=== PATIENT | female | born 1990 | race Caucasian/White ===

== ENCOUNTER 2018-05-24 10:04 | Emergency (ER) | payer SELFPAY ==
[2018-05-24] MEDS ORDERED: ACETAMINOPHEN 325 MG TABLET PO ONE (11:02)
--- NOTE | 2018-05-24 11:04 | ER Document Report ---
ED Medical Screen (RME) - General Chief Complaint: Breathing Difficulty Stated Complaint: FEVER Time Seen by Provider: 05/24/18 11:02 Primary Care Provider: SHARITA RUIZ MD [Primary Care Provider] - Follow up as needed Notes: Patient says that she has been sick for the past 2 days with difficulty breathing, coughing, she congested. She is also running a fever. Her breathing difficulty worsened today. No history of asthma. 6-year-old daughter diagnosed 1 week ago with the flu. Other child is here with similar symptoms. TRAVEL OUTSIDE OF THE [place] IN LAST 30 DAYS: No - Related Data Allergies/Adverse Reactions: No Known Allergies Allergy (Verified 05/24/18 10:06) Past Medical History - Social History Chew tobacco use (# tins/day): No Frequency of alcohol use: None Drug Abuse: None Renal/ Medical History: Denies: Hx Peritoneal Dialysis - Immunizations Hx Diphtheria, Pertussis, Tetanus Vaccination: Yes Physical Exam - Vital signs Vitals: Temp Pulse Resp BP Pulse Ox 103.0 F H 104 H 18 146/99 H 96 05/24/18 10:44 05/24/18 10:44 05/24/18 10:44 05/24/18 10:44 05/24/18 10:44 Course - Vital Signs Vital signs: Temp Pulse Resp BP Pulse Ox 103.0 F H 104 H 18 146/99 H 96 05/24/18 10:44 05/24/18 10:44 05/24/18 10:44 05/24/18 10:44 05/24/18 10:44 Doctor's Discharge - Discharge Referrals: SHARITA RUIZ MD [Primary Care Provider] - Follow up as needed
--- NOTE | 2018-05-24 11:41 | RADIOLOGY REPORT (SQ) ---
EXAM DESCRIPTION: CHEST 2 VIEWS COMPLETED DATE/TIME: 05/24/2018 11:33 am REASON FOR STUDY: Cough and chest congestion, temp 103. COMPARISON: None. EXAM PARAMETERS: NUMBER OF VIEWS: two views TECHNIQUE: Digital Frontal and Lateral radiographic views of the chest acquired. RADIATION DOSE: NA LIMITATIONS: none FINDINGS: LUNGS AND PLEURA: No opacities, masses or pneumothorax. No pleural effusion. MEDIASTINUM AND HILAR STRUCTURES: No masses or contour abnormalities. HEART AND VASCULAR STRUCTURES: Heart normal size. No evidence for failure. BONES: No acute findings. HARDWARE: None in the chest. OTHER: No other significant finding. IMPRESSION: NO ACUTE RADIOGRAPHIC FINDING IN THE CHEST. TECHNICAL DOCUMENTATION: JOB ID: [id number] [employer]- All Rights Reserved Reading location - IP/workstation name: [email or web address]
[2018-05-24 12:25] LABS: A TYPE INFLUENZA AG NEGATIVE (NEGATIVE); B INFLUENZA AG NEGATIVE (NEGATIVE)
--- NOTE | 2018-05-24 12:54 | ER Document Report ---
ED Respiratory Problem - General Chief Complaint: Breathing Difficulty Stated Complaint: FEVER Time Seen by Provider: 05/24/18 11:02 Primary Care Provider: SHARITA RUIZ MD [Primary Care Provider] - Follow up as needed Information source: Patient Notes: 27-year-old female up-to-date on vaccinations presents today with the onset 2 days ago of runny nose, congestion, sore throat, and coughing. No headache, neck pain, vomiting, or diarrhea. Patient's daughter had similar pathology 1 week ago and was diagnosed with influenza. 2-year-old child is also in the room with similar symptomatology. TRAVEL OUTSIDE OF THE [place] IN LAST 30 DAYS: No - HPI Patient complains to provider of: Other - See above Onset: Other - See above Severity: Mild Context: Other - See above. denies: Smoker Sputum amount: Scant Sputum color: Clear Associated symptoms: Other - See above Similar symptoms previously: Yes Recently seen / treated by doctor: No - Related Data Allergies/Adverse Reactions: No Known Allergies Allergy (Verified 05/24/18 10:06) Past Medical History - Social History Smoking Status: Never Smoker Chew tobacco use (# tins/day): No Frequency of alcohol use: None Drug Abuse: None Family History: Reviewed & Not Pertinent Patient has suicidal ideation: No Patient has homicidal ideation: No Renal/ Medical History: Denies: Hx Peritoneal Dialysis - Immunizations Hx Diphtheria, Pertussis, Tetanus Vaccination: Yes Review of Systems - Review of Systems Constitutional: denies: Fever EENT: Nose congestion, Nose discharge. denies: Eye discharge Cardiovascular: denies: Chest pain Respiratory: Cough. denies: Short of breath Gastrointestinal: denies: Vomiting Genitourinary: denies: Dysuria Musculoskeletal: denies: Leg swelling Skin: Other - no hives. denies: Rash Neurological/Psychological: Other - no slurred speech -: Yes All other systems reviewed and negative Physical Exam - Vital signs Vitals: Temp Pulse Resp BP Pulse Ox 103.0 F H 104 H 18 146/99 H 96 05/24/18 10:44 05/24/18 10:44 05/24/18 10:44 05/24/18 10:44 05/24/18 10:44 Notes: Reviewed vital signs and nursing note as charted by RN. CONSTITUTIONAL: Alert and oriented and responds appropriately to questions. Well-appearing; well-nourished HEAD: Normocephalic; atraumatic EYES: PERRL; Conjunctivae clear, sclerae non-icteric ENT: Normal nose; bilateral nonpurulent nasal rhinorrhea; moist mucous membranes; pharynx erythematous with a midline uvula with no peritonsillar swelling NECK: Supple without meningismus; non-tender; no cervical lymphadenopathy, no masses CARD: Regular rate and rhythm; no murmurs; symmetric distal pulses RESP: Normal chest excursion without splinting or tachypnea; breath sounds clear and equal bilaterally; no wheezing or rhonchi present ABD/GI: Normal bowel sounds; non-distended; soft, non-tender; no palpable organomegaly or masses BACK: The back appears normal and is non-tender to palpation EXT: Normal ROM in all joints; non-tender to palpation; no edema SKIN: No acute lesions noted NEURO: CN 2-12 intact; 5/5 bilateral upper and lower extremity strength with sensation intact to light touch PSYCH: The patient's mood and manner are appropriate. Grooming and personal hygiene are appropriate. Course - Re-evaluation Re-evalutation: Given the above history and physical examination, rapid strep and influenza with an x-ray of the chest was ordered in triage. Tylenol was provided. Given the lack of headache or neck stiffness, no rash, 2 children with similar symptomatology, I do believe acute bacterial meningitis to be extremely unlikely. 05/24/18 12:52 Imaging, strep, and influenza are unremarkable. No change in exam. 2-year-old son in the room also is negative for influenza and strep. Patient will be discharged home after antipyretics with strict return precautions and follow-up with the primary care provider. - Vital Signs Vital signs: Temp Pulse Resp BP Pulse Ox 103.0 F H 104 H 18 146/99 H 96 05/24/18 10:44 05/24/18 10:44 05/24/18 10:44 05/24/18 10:44 05/24/18 10:44 Discharge - Discharge Clinical Impression: Nasal congestion, Cough Fever Qualifiers: Fever type: unspecified Qualified Code(s): R50.9 - Fever, unspecified Condition: Good Disposition: HOME, SELF-CARE Additional Instructions: Come back immediately for any worsening cough, difficulty breathing or swallowing, rash, neck stiffness or headache, altered mental status, persistent vomiting, or any other acute problems. Please follow-up with the primary care physician as we have discussed. Referrals: SHARITA RUIZ MD [Primary Care Provider] - Follow up as needed
[2018-05-24 13:32] VITALS: BP 123/80
== END 2018-05-24 13:33 | disposition home or self-care (01) ==
LOC: ER 10:04
DX: R09.81 Nasal congestion (principal); R05 Cough; R06.02 Shortness of breath; R09.89 Other specified symptoms and signs involving the circulatory and respiratory systems; J02.9 Acute pharyngitis, unspecified; R50.9 Fever, unspecified
CPT/HCPCS: 71046; 87070; 87804; 87880; 99283

== ENCOUNTER 2019-01-10 16:03 | Emergency (ER) | payer OTHER, MEDICAID ==
[2019-01-10] MEDS ORDERED: ACETAMINOPHEN 325 MG TABLET PO ONE (17:02)
[2019-01-10] MEDS ORDERED: IBUPROFEN 600 MG TABLET PO ONE (17:02)
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
[2019-01-10 18:47] VITALS: BP 126/84
== END 2019-01-10 18:35 | disposition home or self-care (01) ==
LOC: ER 16:03
DX: S40.021A Contusion of right upper arm, initial encounter (principal); M25.521 Pain in right elbow; M54.2 Cervicalgia; V87.7XXA Person injured in collision between other specified motor vehicles (traffic), initial encounter
CPT/HCPCS: 99283

== ENCOUNTER 2019-12-26 17:00 | Emergency (ER) | payer MEDICAID, OTHER ==
--- NOTE | 2019-12-26 17:13 | ER Document Report ---
ED Medical Screen (RME) - General Chief Complaint: Abdominal Pain Stated Complaint: ABDOMINAL PAIN/VAGINAL BLEEDING - Time Seen by Provider: 12/26/19 17:10 Mode of Arrival: Ambulatory Information source: Patient Notes: 29-year-old female presented to ED for vaginal bleeding and . She states she just ended a week ago she was and now she is cramping and bleeding. She states she started about an hour ago she is not blood enough to soak a pad as yet. She is 4 para 3. She does not smoke drink or use any illicit drugs. She states her last menstrual period started on November 24. Patient is alert oriented respirations regular nonlabored speaking in full sentences. I have greeted and performed a rapid initial assessment of this patient. A comprehensive ED assessment and evaluation of the patient, analysis of test results and completion of medical decision making process will be conducted by an additional ED providers. TRAVEL OUTSIDE OF THE [place] IN LAST 30 DAYS: No - Related Data Allergies/Adverse Reactions: No Known Allergies Allergy (Verified 01/10/19 16:06) Past Medical History Renal/ Medical History: Denies: Hx Peritoneal Dialysis - Immunizations Hx Diphtheria, Pertussis, Tetanus Vaccination: Yes
[2019-12-26 17:44] LABS: ABSOLUTE EOSINOPHILS # (AUTO) 0.1 10^3/uL (0.0-0.6); ABSOLUTE LYMPHOCYTES (AUTO) 2.7 10^3/uL (0.5-4.7); ABSOLUTE MONOCYTES (AUTO) 0.6 10^3/uL (0.1-1.4); ABSOLUTE NEUT (AUTO) 2.9 10^3/uL (1.7-8.2); BASOPHILS % (AUTO) 0.3 % (0-2); EOSINOPHILS % (AUTO) 0.8 % (0-6); HEMATOCRIT 38.4 % (36.0-47.0); HEMOGLOBIN 12.8 g/dL (12.0-15.5); LYMPHOCYTES % (AUTO) 43.2 % (13-45); MEAN CORPUSCULAR HEMOGLOBIN 29.5 pg (27.0-33.4); MEAN CORPUSCULAR HGB CONC 33.2 g/dL (32.0-36.0); MEAN CORPUSCULAR VOLUME 89 fl (80-97); MONOCYTES % (AUTO) 10.2 % (3-13); PLATELET COUNT 319 10^3/uL (150-450); RED BLOOD COUNT 4.33 10^6/uL (3.72-5.28); RED CELL DISTRIBUTION WIDTH 12.7 % (11.5-14.0); SEGMENTED NEUTROPHILS % (AUTO) 45.5 % (42-78); TOTAL CELLS COUNTED % (AUTO) 100 %; WHITE BLOOD COUNT 6.4 10^3/uL (4.0-10.5)
[2019-12-26 18:02] LABS: ALBUMIN 4.9 g/dL (3.5-5.0); ALKALINE PHOSPHATASE 87 U/L (38-126); ANION GAP 14 (5-19); ASPARTATE AMINO TRANSFERASE 30 U/L (14-36); BILIRUBIN,DIRECT 0.3 mg/dL (0.0-0.4); BILIRUBIN,TOTAL 0.5 mg/dL (0.2-1.3); BLOOD UREA NITROGEN 11 mg/dL (7-20); CALCIUM 9.8 mg/dL (8.4-10.2); CARBON DIOXIDE 24 mmol/L (22-30); CHLORIDE 104 mmol/L (98-107); GLUCOSE 100 mg/dL (75-110); POTASSIUM 3.9 mmol/L (3.6-5.0); TOTAL PROTEIN 8.6 g/dL (6.3-8.2)
[2019-12-26 18:52] LABS: APPEARANCE,URINE CLOUDY; BILIRUBIN,URINE NEGATIVE (NEGATIVE); COLOR,URINE YELLOW; GLUCOSE, URINE NEGATIVE (NEGATIVE); KETONES,URINE NEGATIVE (NEGATIVE); LEUKOCYTE ESTERASE,URINE LARGE (NEGATIVE); NITRITE,URINE NEGATIVE (NEGATIVE); PROTEIN,URINE 30 mg/dL (NEGATIVE); URINE SPECIFIC GRAVITY 1.027; UROBILINOGEN,URINE NEGATIVE mg/dL (<2.0)
--- NOTE | 2019-12-26 18:58 | RADIOLOGY REPORT (SQ) ---
US PELVIS HISTORY: Early . Pelvic pain. COMPARISON: None. TECHNIQUE: Grayscale, color Doppler, and spectral Doppler ultrasound images of the pelvis were obtained. FINDINGS: There is an intrauterine gestational sac with a mean sac diameter of 0.91 cm which corresponds to 5 weeks 5 days. No yolk sac or pole is seen at this time. The cervix is 2.5 cm and is closed. No subchorionic hematoma. Both ovaries are normal in size and contain normal follicles, with the right ovary measuring 3.0 x 2.7 cm and the left ovary measuring 3.4 x 2.1 cm. Normal color Doppler blood flow is seen in both ovaries. No free fluid is evident. IMPRESSION: Intrauterine gestation of 5 weeks 5 days. No yolk sac or pole is seen at this time. Findings may represent early . Recommend short-term follow-up ultrasound imaging.
--- NOTE | 2019-12-26 22:03 | ER Document Report ---
ED GI/ - General Chief Complaint: Abdominal Pain Stated Complaint: ABDOMINAL PAIN/VAGINAL BLEEDING - Time Seen by Provider: 12/26/19 17:10 Mode of Arrival: Ambulatory Notes: This 29-year-old presents to the emergency department with a history of vaginal bleeding today while at work. She noted cramping and vaginal bleeding which she noted as a spotting and not gushing of blood. Last normal menstrual period was November 24., She presents to the emergency department for evaluation of a early spontaneous AB. TRAVEL OUTSIDE OF THE [place] IN LAST 30 DAYS: No - Related Data Allergies/Adverse Reactions: No Known Allergies Allergy (Verified 01/10/19 16:06) Past Medical History - General Information source: Patient - Social History Smoking Status: Unknown if Ever Smoked Family History: Reviewed & Not Pertinent Patient has homicidal ideation: No Renal/ Medical History: Denies: Hx Peritoneal Dialysis - Immunizations Hx Diphtheria, Pertussis, Tetanus Vaccination: Yes Review of Systems - Review of Systems Notes: Constitutional: Negative for fever. HENT: Negative for sore throat. Eyes: Negative for visual changes. Cardiovascular: Negative for chest pain. Respiratory: Negative for shortness of breath. Gastrointestinal: Negative for abdominal pain, vomiting or diarrhea. Genitourinary: See HPI Musculoskeletal: Negative for back pain. Skin: Negative for rash. Neurological: Negative for headaches, weakness or numbness. 10 point ROS negative except as marked above and in HPI. Physical Exam - Notes Notes: PHYSICAL EXAMINATION: Physical Exam: General: Well-nourished well-developed 29-year-old female in no acute distress HEENT: NC/AT, pupils equal round and reactive to light, MM moist,nares clear, oropharynx clear, airway patent Neck: supple, no adenopathy, no masses. Good range of motion Lungs: clear, no wheezing, no rales no rhonchi CVS: Regular rate and rhythm no murmur gallop or rub Abdomen: Soft, active, nontender, no masses, no hepatosplenomegaly Ext: No edema, clubbing or cyanosis. Neuro: Alert and responsive, moving all 4 extremities on command, cranial nerves intact, no focal findings Skin: Intact no open lesions, no rash Course - Re-evaluation Re-evalutation: 12/26/19 22:00 Patient is hemodynamically stable, sitting on the bed texting on her telephone at the time of this examiner's exam. Ultrasound reveals a 5-week 5-day intrauterine sac with no pole noted. Quantitative hCG was 177. Is not actively bleeding at this time I have advised her to follow-up with the health department on her appointment January 01, 2020. A repeat quantitative hCG may be performed at that time. Patient acknowledges understanding of this plan and has requested a note to stay out of work for the next few days. - Laboratory Result Diagrams: 12/26/19 17:26 12/26/19 17:26 Laboratory results interpreted by me: 12/26/19 12/26/19 17:13 17:26 Total Protein 8.6 H Beta HCG, Quant 177.82 H Urine Protein 30 H Urine Blood LARGE H Ur Leukocyte Esterase LARGE H Discharge - Discharge Clinical Impression: First trimester , Vaginal bleeding Condition: Good Disposition: HOME, SELF-CARE Instructions: Threatened Abortions ( Patients) Additional Instructions: You are seen in the emergency department tonight with vaginal bleeding and early . Your ultrasound shows that there is a yolk sac in the uterus, however, no structures can be identified as it is a very early . Please follow-up with your appointment on December 31 with the health department. If you are having further difficulty or worsening symptoms you may be rechecked in the emergency department HOME CARE INSTRUCTIONS & INFORMATION: Thank you for choosing us for your medical needs. We hope you're satisfied with the care you received. After you leave, you must properly care for your problem and, at the same time, observe its progress. Any condition can change. Some illnesses can change rapidly over hours or days. If your condition worsens, return to the Emergency Department or see your physician promptly. ABOUT YOUR X-RAYS AND EKG'S: If you had an EKG or X-rays taken, they have been read by the Emergency Physician. The X-rays and EKG's will also be read by a Radiologist or Warehouse Director within 24 hours. If discrepancies are noted, you will be notified by telephone. Please be certain the ED has a correct telephone number & address where you can be reached. Also, realize that some fractures or abnormalities do not show up on initial X-rays. If your symptoms continue, see your physician. ABOUT YOUR LABORATORY TEST: If you had laboratory tests, the results have been reviewed by the Emergency Physician. Some test results (for example cultures) may not be available for several days. You will be contacted if any test result shows you need additional treatment. Please be certain the ED has a correct telephone number and address where you can be reached. ABOUT YOUR MEDICATIONS: You will receive instructions on how to take your medicine on the prescription label you receive. Additional information may be provided by the Pharmacy. If you have questions afterwards, call the ED for clarification or further instructions. Some prescribed medications may cause drowsiness. Do not perform tasks such as driving a car or operating machinery without consulting your Pharmacist. If you feel you need a refill of pain medication, your condition will need re-evaluation. Please do not call for a refill of any medication. ABOUT YOUR SIGNATURE: Signature of this document acknowledges to followin. Understanding that you received emergency treatment and that you may be released before al medical problems are known or treated. Please be certain the ED has a correct phone number & address where you can be reached. 2. Acknowledgement that you will arrange for follow-up care as recommended. 3. Authorization for the Emergency Physician to provide information to your follow-up Physician in order to maximize your care. AT ANY TIME, IF YOUR SYMPTOMS CHANGE SIGNIFICANTLY OR WORSEN OR YOU DEVELOP NEW SYMPTOMS, RETURN TO THE EMERGENCY DEPARTMENT IMMEDIATELY FOR RE-EVALUATION. OUR GOAL IS TO PROVIDE EXCELLENT MEDICAL CARE! WE HOPE THAT WE HAVE MET YOUR EXPECTATIONS DURING YOUR EMERGENCY DEPARTMENT VISIT AND THAT YOU FEEL YOU HAVE RECEIVED EXCELLENT CARE! Forms: Return to Work
[2019-12-26 22:13] VITALS: BP 126/94
== END 2019-12-26 22:14 | disposition home or self-care (01) ==
LOC: ER 17:00
DX: O20.9 Hemorrhage in early pregnancy, unspecified (principal); O26.891 Other specified pregnancy related conditions, first trimester; R25.2 Cramp and spasm; Z3A.01 Less than 8 weeks gestation of pregnancy
CPT/HCPCS: 36415; 76817; 80053; 81001; 84702; 85025; 87086; 99284

== ENCOUNTER 2020-03-21 20:41 | Emergency (ER) | payer MEDICAID ==
--- NOTE | 2020-03-21 21:55 | ER Document Report ---
ED Medical Screen (RME) - General Chief Complaint: Vaginal Bleeding Stated Complaint: VOMITING BLOOD/VAGINAL PAIN Time Seen by Provider: 03/21/20 21:50 Mode of Arrival: Ambulatory Information source: Patient Notes: 29-year-old female presented to ED for complaint of abdominal pain and vomiting blood. She is 17 weeks . She states she was treated for GC and chlamydia and bacterial vaginosis and she thinks she has a yeast infection now. She states that there is a lot of white discharge but she also feels like she is tearing and spreading down there. Patient is alert oriented respirations regular nonlabored speaking in full sentences. We will get blood urine and transabdominal ultrasound and she will be seen by another person. I will order the GC chlamydia and wet mount swabs the summer we will need to examine her vaginal area for what she is describing. I have greeted and performed a rapid initial assessment of this patient. A comprehensive ED assessment and evaluation of the patient, analysis of test results and completion of medical decision making process will be conducted by an additional ED providers. TRAVEL OUTSIDE OF THE [place] IN LAST 30 DAYS: No - Related Data Allergies/Adverse Reactions: No Known Allergies Allergy (Verified 01/10/19 16:06) Past Medical History Renal/ Medical History: Denies: Hx Peritoneal Dialysis - Immunizations Hx Diphtheria, Pertussis, Tetanus Vaccination: Yes Physical Exam - Vital signs Vitals: Temp Pulse Resp BP Pulse Ox 98.2 F 94 16 122/83 98 03/21/20 21:16 03/21/20 21:16 03/21/20 21:16 03/21/20 21:16 03/21/20 21:16 Course - Vital Signs Vital signs: Temp Pulse Resp BP Pulse Ox 98.2 F 94 16 122/83 98 03/21/20 21:16 03/21/20 21:16 03/21/20 21:16 03/21/20 21:16 03/21/20 21:16
[2020-03-21 22:23] LABS: ABSOLUTE EOSINOPHILS # (AUTO) 0.1 10^3/uL (0.0-0.6); ABSOLUTE LYMPHOCYTES (AUTO) 3.1 10^3/uL (0.5-4.7); ABSOLUTE MONOCYTES (AUTO) 0.7 10^3/uL (0.1-1.4); ABSOLUTE NEUT (AUTO) 6.7 10^3/uL (1.7-8.2); BASOPHILS % (AUTO) 0.4 % (0-2); EOSINOPHILS % (AUTO) 0.5 % (0-6); HEMATOCRIT 36.2 % (36.0-47.0); HEMOGLOBIN 12.6 g/dL (12.0-15.5); MEAN CORPUSCULAR HEMOGLOBIN 30.4 pg (27.0-33.4); MEAN CORPUSCULAR HGB CONC 34.7 g/dL (32.0-36.0); MEAN CORPUSCULAR VOLUME 88 fl (80-97); MONOCYTES % (AUTO) 6.9 % (3-13); PLATELET COUNT 365 10^3/uL (150-450); RED BLOOD COUNT 4.13 10^6/uL (3.72-5.28); SEGMENTED NEUTROPHILS % (AUTO) 63.2 % (42-78); TOTAL CELLS COUNTED % (AUTO) 100 %; WHITE BLOOD COUNT 10.6 10^3/uL (4.0-10.5)
[2020-03-21 22:38] LABS: APPEARANCE,URINE SLIGHTLY-CLOUDY; BILIRUBIN,URINE NEGATIVE (NEGATIVE); COLOR,URINE AMBER; GLUCOSE, URINE NEGATIVE (NEGATIVE); KETONES,URINE 20 mg/dL (NEGATIVE); LEUKOCYTE ESTERASE,URINE TRACE (NEGATIVE); NITRITE,URINE NEGATIVE (NEGATIVE); PROTEIN,URINE 30 mg/dL (NEGATIVE); UROBILINOGEN,URINE NEGATIVE mg/dL (<2.0)
[2020-03-21 22:54] LABS: ALBUMIN 4.3 g/dL (3.5-5.0); ALKALINE PHOSPHATASE 74 U/L (38-126); ANION GAP 9 (5-19); ASPARTATE AMINO TRANSFERASE 44 U/L (14-36); BILIRUBIN,DIRECT 0.1 mg/dL (0.0-0.4); BILIRUBIN,TOTAL 0.4 mg/dL (0.2-1.3); BLOOD UREA NITROGEN 6 mg/dL (7-20); CALCIUM 9.9 mg/dL (8.4-10.2); CARBON DIOXIDE 23 mmol/L (22-30); CHLORIDE 104 mmol/L (98-107); GLUCOSE 107 mg/dL (75-110); POTASSIUM 3.8 mmol/L (3.6-5.0); TOTAL PROTEIN 8.1 g/dL (6.3-8.2)
--- NOTE | 2020-03-21 23:09 | RADIOLOGY REPORT (SQ) ---
Obstetric ultrasound: 03/21/2020 10:04 PM PARK RECREATION MANAGER HISTORY: 29-year-old female with abdominal pain, vaginal bleeding. TECHNIQUE: Multiple grayscale and color Doppler images of the pelvis were obtained transabdominally. COMPARISON: None available for this . FINDINGS: A single intrauterine gestation is seen, which is variable in position. The placenta is anterior in location, and free of internal os of the cervix. The estimated heart rate is approximately bpm. The cervix measures at least 4.3 cm in length. The SOURAV measures 14.4 cm, with the deepest vertical pocket of approximately 4.7 cm. The following measurements were obtained: BPD: 4.7 cm, consistent with 20 weeks and 1 day(s). HC: 13.6 cm, consistent with 17 weeks and 1 day(s). AC: 12.2 cm, consistent with 17 weeks and 6 day(s). FL: 2.6 cm, consistent with 17 weeks and 6 day(s). The estimated weight is approximately 213 g +/- 15%. The fetus overall measures at the 18%. The fetus measures at 18 weeks and 2 day(s) by AUA, consistent with an estimated due date of 08/20/20. This is different than the established due date of 08/31/2020. IMPRESSION: A single, live intrauterine gestation is seen which is currently variable in position. The fetus measures at 18 weeks and 2 day(s) by AUA, consistent with an estimated due date of 08/20/2020. This is different than the established due date of 08/31/2020. The fetus measures at the 18th percentile. This could be due to inaccurate dates. 2.Detailed anatomic assessment was not performed. Interval follow-up with an obstetric care provider is recommended.
--- NOTE | 2020-03-22 00:02 | ER Document Report ---
ED GI/ - General Mode of Arrival: Ambulatory TRAVEL OUTSIDE OF THE [place] IN LAST 30 DAYS: No <JOSE FRANCISCO GUO - Last Filed: 03/22/20 00:58> <AINSLEY VARELA - Last Filed: 03/22/20 16:38> - General Chief Complaint: Vaginal Discharge Stated Complaint: VOMITING BLOOD/VAGINAL PAIN Time Seen by Provider: 03/21/20 21:50 Notes: This 29-year-old woman 4 para 3 presents to the emergency department with a complaint of vomiting episodes with some blood noted in the vomitus today. She has been given a prescription for something for -induced nausea, however she did not get a prescription filled. She also complains of some pain in the lower pelvis region no bleeding and no vaginal discharge. (JOSE FRANCISCO GUO) - Related Data Allergies/Adverse Reactions: No Known Allergies Allergy (Verified 01/10/19 16:06) Past Medical History - General Information source: Patient - Social History Smoking Status: Unknown if Ever Smoked Family History: Reviewed & Not Pertinent Patient has homicidal ideation: No Renal/ Medical History: Denies: Hx Peritoneal Dialysis - Immunizations Hx Diphtheria, Pertussis, Tetanus Vaccination: Yes <JOSE FRANCISCO GUO - Last Filed: 03/22/20 00:58> Review of Systems <JOSE FRANCISCO GUO - Last Filed: 03/22/20 00:58> - Review of Systems Notes: Constitutional: Negative for fever. HENT: Negative for sore throat. Eyes: Negative for visual changes. Cardiovascular: Negative for chest pain. Respiratory: Negative for shortness of breath. Gastrointestinal: See HPI Genitourinary: See HPI Musculoskeletal: Negative for back pain. Skin: Negative for rash. Neurological: Negative for headaches, weakness or numbness. 10 point ROS negative except as marked above and in HPI. (JOSE FRANCISCO GUO) Physical Exam <JOSE FRANCISCO GUO - Last Filed: 03/22/20 00:58> - Vital signs Vitals: Temp Pulse Resp BP Pulse Ox 98.2 F 94 16 122/83 98 03/21/20 21:16 03/21/20 21:16 03/21/20 21:16 03/21/20 21:16 03/21/20 21:16 - Notes Notes: PHYSICAL EXAMINATION: Physical Exam: General: Well-nourished well-developed 29-year-old female in no acute distress HEENT: NC/AT, pupils equal round and reactive to light, MM moist,nares clear, oropharynx clear, airway patent Neck: supple, no adenopathy, no masses. Good range of motion Lungs: clear, no wheezing, no rales no rhonchi CVS: Regular rate and rhythm no murmur gallop or rub Abdomen: Soft, active, gravid, + good bowel sounds, no masses, no hepatosplenomegaly Ext: No edema, clubbing or cyanosis. Neuro: Alert and responsive, moving all 4 extremities on command, cranial nerves intact, no focal findings Skin: Intact no open lesions, no rash (JOSE FRANCISCO GUO) Course - Laboratory Result Diagrams: 03/21/20 22:10 03/21/20 22:10 - Diagnostic Test Radiology reviewed: Image reviewed, Reports reviewed <JOSE FRANCISCO GUO - Last Filed: 03/22/20 00:58> - Laboratory Result Diagrams: 03/21/20 22:10 03/21/20 22:10 <AINSLEY VARELA - Last Filed: 03/22/20 16:38> - Re-evaluation Re-evalutation: 03/22/20 00:00 Patient presents with a history of vomiting episodes and approximately 17-week intrauterine . She has not been using any medications for nausea, has been able to keep some fluids and food down. She also complains of pain in the lower pelvic region and denies dysuria or urgency. This is her fourth she had preeclampsia with her last baby and low volume with the second baby. I have a asked her about her follow-up, patient states that she goes to the health department and is not a high risk group. Blood pressure tonight is normal 120/83. 03/22/20 00:02 03/22/20 00:02 (JOSE FRANCISCO GUO) 03/22/20 16:38 Patient positive for chlamydia, prescription for azithromycin written, KRYSTAL Ng advised to contact patient and have patient have partner seek treatment as well. (AINSLEY VARELA) - Vital Signs Vital signs: Temp Pulse Resp BP Pulse Ox 98.7 F 73 20 117/71 98 03/22/20 01:01 03/22/20 01:01 03/22/20 01:01 03/22/20 01:01 03/22/20 01:01 - Laboratory Laboratory results interpreted by me: 03/21/20 03/21/20 03/21/20 22:10 22:10 22:10 WBC 10.6 H Sodium 136.1 L BUN 6 L Creatinine 0.49 L AST 44 H ALT 43 H Beta HCG, Quant 21288.00 H Urine Protein 30 H Urine Ketones 20 H Ur Leukocyte Esterase TRACE H Chlamydia DNA (PCR) 03/21/20 23:00 WBC Sodium BUN Creatinine AST ALT Beta HCG, Quant Urine Protein Urine Ketones Ur Leukocyte Esterase Chlamydia DNA (PCR) DETECTED H 03/22/20 00:00 I have reviewed laboratory data and used this information for the treatment decisions regarding the patient. (JOSE FRANCISCO GUO) - Diagnostic Test Radiology results interpreted by me: 03/22/20 00:00 Obstetrics Ultrasound 03/21/20 21:56 IMPRESSION: A single, live intrauterine gestation is seen which is currently variable in position. The fetus measures at 18 weeks and 2 day(s) by AUA, consistent with an estimated due date of 08/20/2020. This is different than the established due date of 08/31/2020. The fetus measures at the 18th percentile. This could be due to inaccurate dates. 2.Detailed anatomic assessment was not performed. Interval follow-up with an obstetric care provider is recommended. (JOSE FRANCISCO GUO) Discharge <JOSE FRANCISCO GUO - Last Filed: 03/22/20 00:58> <AINSLEY VARELA - Last Filed: 03/22/20 16:38> - Discharge Clinical Impression: Second trimester , related nausea and vomiting, antepartum, Pelvic pain during Condition: Good Disposition: HOME, SELF-CARE Instructions: Vomiting ([facility]) Additional Instructions: You were seen in the emergency department tonight with some bleeding related to vomiting, pelvis pain with an 18-week and history of the preeclampsia. Your blood pressure tonight was normal and the labs that were received are on remarkable. The ultrasound reveals an 18-week 2-day intrauterine with good heartbeat. Use Tylenol for pain. Please get the prescription filled for medication for nausea control. Please follow-up with the health department as needed. HOME CARE INSTRUCTIONS & INFORMATION: Thank you for choosing us for your [facility] needs. We hope you're satisfied with the care you received. After you leave, you must properly care for your problem and, at the same time, observe its progress. Any condition can change. Some illnesses can change rapidly over hours or days. If your condition worsens, return to the Emergency Department or see your physician promptly. ABOUT YOUR X-RAYS AND EKG'S: If you had an EKG or X-rays taken, they have been read by the Emergency Physician. The X-rays and EKG's will also be read by a Radiologist or Manager Center within 24 hours. If discrepancies are noted, you will be notified by telephone. Please be certain the ED has a correct telephone number & address where you can be reached. Also, realize that some fractures or abnormalities do not show up on initial X-rays. If your symptoms continue, see your physician. ABOUT YOUR LABORATORY TEST: If you had laboratory tests, the results have been reviewed by the Emergency Physician. Some test results (for example cultures) may not be available for several days. You will be contacted if any test result shows you need additional treatment. Please be certain the ED has a correct telephone number and address where you can be reached. ABOUT YOUR MEDICATIONS: You will receive instructions on how to take your medicine on the prescription label you receive. Additional information may be provided by the Pharmacy. If you have questions afterwards, call the ED for clarification or further instructions. Some prescribed medications may cause drowsiness. Do not perform tasks such as driving a car or operating machinery without consulting your Pharmacist. If you feel you need a refill of pain medication, your condition will need re-evaluation. Please do not call for a refill of any medication. ABOUT YOUR SIGNATURE: Signature of this document acknowledges to followin. Understanding that you received emergency treatment and that you may be released before al medical problems are known or treated. Please be certain the ED has a correct phone number & address where you can be reached. 2. Acknowledgement that you will arrange for follow-up care as recommended. 3. Authorization for the Emergency Physician to provide information to your follow-up Physician in order to maximize your care. AT ANY TIME, IF YOUR SYMPTOMS CHANGE SIGNIFICANTLY OR WORSEN OR YOU DEVELOP NEW SYMPTOMS, RETURN TO THE EMERGENCY DEPARTMENT IMMEDIATELY FOR RE-EVALUATION. OUR GOAL IS TO PROVIDE EXCELLENT MEDICAL CARE! WE HOPE THAT WE HAVE MET YOUR EXPECTATIONS DURING YOUR EMERGENCY DEPARTMENT VISIT AND THAT YOU FEEL YOU HAVE RECEIVED EXCELLENT CARE!
[2020-03-22] MEDS ORDERED: ACETAMINOPHEN 325 MG TABLET PO ONE (00:03)
[2020-03-22 00:50] LABS: CHLAM PCR DETECTED (NOT DETECT)
[2020-03-22 01:02] VITALS: BP 117/71
== END 2020-03-22 01:03 | disposition home or self-care (01) ==
LOC: ER 20:41
DX: O98.812 Other maternal infectious and parasitic diseases complicating pregnancy, second trimester (principal); A74.9 Chlamydial infection, unspecified; O26.892 Other specified pregnancy related conditions, second trimester; R10.2 Pelvic and perineal pain; O99.612 Diseases of the digestive system complicating pregnancy, second trimester; K92.0 Hematemesis; O21.9 Vomiting of pregnancy, unspecified; Z3A.00 Weeks of gestation of pregnancy not specified
CPT/HCPCS: 99284; 36415; 87086; 84702; 85025; 80053; 81001; 87491; 87591; 76805; J3490; 87088; 87186

== ENCOUNTER 2020-03-22 19:46 | Emergency (ER) | payer MEDICAID ==
[2020-03-22] MEDS ORDERED: METRONIDAZOLE 500 MG TABLET PO ONE (20:10)
[2020-03-22] MEDS ORDERED: LIDOCAINE 1% INJ-PF (10 MG/ML) 30 ML SDV INJ ONE (20:10)
[2020-03-22] MEDS ORDERED: CEFTRIAXONE INJ 250 MG VIAL IM ONE (20:13)
--- NOTE | 2020-03-22 20:13 | ER Document Report ---
ED GI/ - General Chief Complaint: Vaginal Pain Stated Complaint: STD EXPOSURE Time Seen by Provider: 03/22/20 20:07 Mode of Arrival: Ambulatory Information source: Patient Notes: She was seen yesterday for pelvic pain vaginal pain and burning. She also is and was was tested for urinary tract infection and ultrasound for the baby. She states that when the doctor came and saw her that he said did that the baby was okay but he did not treat her for the STD or test her for trichomonas bacterial vaginosis or yeast. He states she states he did not look at her vaginal area. She states she did get a call today that she was positive for chlamydia and she needed to be treated. I have ordered the Flagyl and Rocephin at this time I have also ordered a self swab for a bacterial vaginosis. She states the vaginal pain is not as bad and the chlamydia makes sense because last time she had chlamydia did feel this way. Constitutional: Negative for fever. HENT: Negative for sore throat. Eyes: Negative for visual changes. Cardiovascular: Negative for chest pain. Respiratory: Negative for shortness of breath. Gastrointestinal: 17 weeks vaginal pain, positive for chlamydia yesterday needs treatment Genitourinary: Vaginal pain vaginal discharge positive for chlamydia did not get the wet mount done Musculoskeletal: Negative for back pain. Skin: Negative for rash. Neurological: Negative for headaches, weakness or numbness. 10 point ROS negative except as marked above and in HPI. VITAL SIGNS: Within normal limits. GENERAL: No acute distress, non-toxic appearance. HEAD: Normal with no signs of head trauma. EYES: PERRLA, EOMI, conjunctiva normal, no discharge. EARS: Hearing grossly intact. NOSE: Normal. THROAT: Oropharynx is normal. NECK: Normal range of motion, no tenderness, supple, no lymphadenopathy, No adenopathy, no JVD. CHEST: Clear breath sounds bilaterally. No wheezes, rales, or rhonchi. CARDIAC: Regular rate and rhythm. S1 and S2, without murmurs, gallops, or rubs. VASCULAR: No Edema. Peripheral pulses normal and equal in all extremities. ABDOMEN: Normal and soft with no tenderness, no masses or pulsatile masses. GASTROINTESTINAL: 19 weeks GENITOURINARY: Vaginal pain and discharge she is positive for chlamydia LYMPATHTIC: No lymphadenopathy noted. MUSCULOSKELETAL: Good range of motion of all major joints. Extremities without clubbing, cyanosis or edema. NEUROLOGICAL: Alert and oriented x 3. No focal sensory or strength deficits. Speech normal. Follows commands appropriately. PSYCHIATRIC: Normal Affect, judgement and mood. SKIN: Normal appearance with no rashes or lesions. TRAVEL OUTSIDE OF THE [place] IN LAST 30 DAYS: No - HPI Patient complains to provider of: Vaginal discharge, Vaginal pain Onset: Other - To 3 days Timing/Duration: Intermittent Quality of pain: Burning, Sharp Severity at maximum: Moderate Severity in ED: Moderate Pain Level: 4 Location: Vaginal Vaginal bleeding (Compared to normal period): None LMP: 18 weeks ultrasound done yesterday Sexual history: STD exposure Associated symptoms: Other - Vaginal pain 17 weeks Exacerbated by: Walking Relieved by: Denies Similar symptoms previously: Yes Recently seen / treated by doctor: Yes - Related Data Allergies/Adverse Reactions: No Known Allergies Allergy (Verified 03/22/20 20:02) Past Medical History - General Information source: Patient - Social History Smoking Status: Never Smoker Frequency of alcohol use: Rare Drug Abuse: None Lives with: Family Family History: Reviewed & Not Pertinent - Past Medical History Cardiac Medical History: Reports: None Pulmonary Medical History: Reports: None EENT Medical History: Reports: None Neurological Medical History: Reports: None Endocrine Medical History: Reports: None Renal/ Medical History: Reports: Other - Chlamydia Malignancy Medical History: Reports: None GI Medical History: Reports: None Musculoskeletal Medical History: Reports None Skin Medical History: Reports None Psychiatric Medical History: Reports: None Traumatic Medical History: Reports: None Infectious Medical History: Reports: None - Immunizations Hx Diphtheria, Pertussis, Tetanus Vaccination: Yes Physical Exam - Vital signs Vitals: Temp Pulse Resp BP Pulse Ox 98.0 F 85 16 143/101 H 97 03/22/20 19:49 03/22/20 19:49 03/22/20 19:49 03/22/20 19:49 03/22/20 19:49 Course - Re-evaluation Re-evalutation: 03/22/20 21:19 Discussed results of wet mount and urine with Dr. Keller. She agreed with the treatment plan I had done. She states distant discussed with the patient that she can use Monistat but the 7-day is much more tolerated for a than the 3-day treatment. She states if you have a 3-day treatment you can use it but if it starts to burn to use a 7-day. She also agreed with the treatment with azithromycin and Flagyl at this time. She states she would like to see the patient within the next week the patient states she goes to the health department tomorrow and she will discuss this with them tomorrow. - Vital Signs Vital signs: Temp Pulse Resp BP Pulse Ox 98.0 F 85 16 120/80 97 03/22/20 19:49 03/22/20 19:49 03/22/20 19:49 03/22/20 20:18 03/22/20 19:49 Discharge - Discharge Clinical Impression: Chlamydia, Bacterial vaginosis, Yeast vaginitis Condition: Stable Disposition: HOME, SELF-CARE Additional Instructions: VAGINITIS: Your exam shows that you have vaginitis, a vaginal infection. The infection can be caused by a many different organisms, including trichomonas or Gardnerella. The usual symptoms are vaginal irritation and discharge. The treatment is usually antibiotics such as Flagyl. Laboratory tests can determine which germ is responsible. Use the medication as prescribed. Because this infection can be transmitted sexually, your sexual partner may need to be checked and treated also. If your physician has not discussed this with you, please check before resuming sexual relations. If a culture shows gonorrhea or chlamydia, the infection must be reported to the health department. Call the doctor if you develop pelvic pain, fever, or problems with urination, or if you don't improve as expected. VAGINOSIS, BACTERIAL: Your exam shows you have bacterial vaginosis. This condition is due to an overgrowth of bacteria in the vagina. Symptoms may include vaginal itching or pain, a smelly discharge, and sometimes burning with urination. Normally this is not transmitted by sexual contact. Vaginosis can be treated with oral or topical antibiotics. Metronidazole (Flagyl) pills are usually effective. Topical vaginal creams include Cleocin and Metro-Gel. You should avoid sexual contact until your symptoms are all better. Call the doctor if you develop pelvic pain, fever, or problems with urination, or if you don't improve as expected. VAGINAL YEAST INFECTION: You have evidence of a yeast infection -- called "irma." A vaginal yeast infection often causes itching and discharge. While not dangerous, it can be very unpleasant. A yeast infection often follows the use of powerful antibiotics. It is more likely to occur in diabetics. The treatment now is usually a single pill of Diflucan, but also an antifungal cream or suppository may be used for a few days. You do not need to avoid sexual intercourse. Recurrences are common. You can make a recurrence less likely by wearing cotton underwear and avoiding tight clothing. For mild recurrences, you can try [id number] creams or suppositories that are made specifically for yeast. If the symptoms do not resolve, you should follow up for re-examination. Sometimes treatment of the sexual partner is necessary if infections are recurrent. CEPHALOSPORINS: An antibiotic of the cephalosporin class has been prescribed. This type of antibiotic covers a wide variety of infections, including those of the skin, lungs, middle ear, and urinary tract. This antibiotic is somewhat similar to the penicillin family. In rare cases, a person who is allergic to penicillin will also be allergic to this medication. If you have had a severe allergic reaction to penicillin, and have not taken this antibiotic since that time, notify your doctor. Antibiotics which cover many germs ("broad spectrum" antibiotics) are more likely to cause diarrhea or "yeast" infections. Women prone to vaginal yeast problems may suffer an attack after taking this antibiotic. In infants, oral thrush (white spots "stuck" on the cheek) or yeast diaper rash may result. See your doctor if these problems occur. Call the doctor at once if you develop hives, itching, shortness of breath, or lightheadedness. AZITHROMYCIN: Azithromycin (Zithromax) is a broad spectrum antibiotic in the same class as erythromycin. It can treat a variety of bacterial infections, but is most frequently used for respiratory infections. Azithromycin is extremely long-lasting. It accumulates in body tissues and continues to kill bacteria for many days. In order to improve absorption, Azithromycin should be taken at least one hour before or two hours after a meal. It does not have the same strong tendency to upset the stomach as erythromycin and is usually very well tolerated. Patients who have had a rash or other true allergic reactions to erythromycin should not take this medication. Call if you develop gastrointestinal distress, severe diarrhea, rash, hives, itching, or shortness of breath. METRONIDAZOLE: Metronidazole (Flagyl) has been prescribed. This medication is used to kill a type of bacteria called anaerobes, and protozoan parasites such as trichomonas and Giardia. Flagyl often causes a metallic taste in the mouth and mild nausea. Do not use alcohol in any form with Flagyl (including alcohol in medication elixirs). Flagyl interacts with alcohol to cause flushing, palpitations, headache, stomach cramps, and vomiting. Do not use Flagyl if you are taking Antabuse (disulfiram). Call the doctor at once if you develop rash, shortness of breath, itching, or lightheadedness. Due to the fact you are I cannot treat you with Diflucan for your yeast infection. You will need to use [id number] treatment for your yeast infection. FOLLOW-UP CARE: If you have been referred to a physician for follow-up care, call the physicians office for an appointment as you were instructed or within the next two days. If you experience worsening or a significant change in your symptoms, notify the physician immediately or return to the Emergency Department at any time for re-evaluation. Prescriptions: Metronidazole [Flagyl 500 mg Tablet] 500 mg PO BID #14 tablet Referrals: [facility] [Provider Group] - Follow up in 1 week
[2020-03-22 20:18] VITALS: BP 120/80
[2020-03-22] MEDS ORDERED: AZITHROMYCIN 250 MG TABLET PO ONE (20:27)
[2020-03-22 20:53] LABS: BACTERIA (WET MOUNT) 4+ BACTERIA SEEN; EPITHELIALS (WET MOUNT) 3+ EPITHELIALS SEEN; T.VAGINALIS (WET MOUNT) NO TRICHOMONAS SEEN; WBCS (WET MOUNT) 2+ WBCS SEEN; YEAST (WET MOUNT) BUDDING YEAST SEEN
== END 2020-03-22 21:20 | disposition home or self-care (01) ==
LOC: ER 19:46
DX: O98.312 Other infections with a predominantly sexual mode of transmission complicating pregnancy, second trimester (principal); A56.02 Chlamydial vulvovaginitis; R10.2 Pelvic and perineal pain; O98.812 Other maternal infectious and parasitic diseases complicating pregnancy, second trimester; B37.3 Candidiasis of vulva and vagina; Z3A.17 17 weeks gestation of pregnancy
CPT/HCPCS: 99284; 96372; 87210; Q0144; J3490 ×2; J0696

== ENCOUNTER 2020-04-24 08:51 | Emergency (ER) | payer MEDICAID ==
[2020-04-24 08:56] VITALS: BP 128/88
== END 2020-04-24 13:16 | disposition left against medical advice (07) ==
LOC: ER 08:51
DX: Z53.21 Procedure and treatment not carried out due to patient leaving prior to being seen by health care provider (principal)

== ENCOUNTER 2020-04-30 20:22 | Emergency (ER) | payer MEDICAID ==
--- NOTE | 2020-04-30 20:55 | ER Document Report ---
ED Medical Screen (RME) - General Stated Complaint: STOMACH PAIN,VOMITING,FAINTY Time Seen by Provider: 04/30/20 20:53 Primary Care Provider: JEAN CLAUDE IRWIN MD [Primary Care Provider] - Follow up as needed Mode of Arrival: Wheelchair Information source: Patient Notes: 29-year-old female patient presents the emergency department at 22 weeks gestation complaining of epigastric pain specifically after eating. She reports it is severe. Pain has been ongoing for the last 5 days worsening over the last 24 hours. She has associated vomiting. Denies any fever reports chills. Patient still has her gallbladder. Denies any vaginal bleeding. She is currently being treated on antibiotics for urinary tract infection. I have greeted and performed a rapid initial assessment of this patient. A comprehensive ED assessment and evaluation of the patient, analysis of test results and completion of the medical decision making process will be conducted by additional ED providers. I have specifically instructed the patient or family members with the patient to immediately return to any nursing staff should anything change in the patient's condition or with their chief complaint. TRAVEL OUTSIDE OF THE [place] IN LAST 30 DAYS: No - Related Data Allergies/Adverse Reactions: No Known Allergies Allergy (Verified 03/22/20 20:02) Past Medical History Renal/ Medical History: Denies: Hx Peritoneal Dialysis - Immunizations Hx Diphtheria, Pertussis, Tetanus Vaccination: Yes Doctor's Discharge - Discharge Referrals: JEAN CLAUDE IRWIN MD [Primary Care Provider] - Follow up as needed
[2020-04-30 21:46] LABS: ABSOLUTE EOSINOPHILS # (AUTO) 0.1 10^3/uL (0.0-0.6); ABSOLUTE LYMPHOCYTES (AUTO) 2.5 10^3/uL (0.5-4.7); ABSOLUTE MONOCYTES (AUTO) 0.8 10^3/uL (0.1-1.4); BASOPHILS % (AUTO) 0.4 % (0-2); EOSINOPHILS % (AUTO) 0.6 % (0-6); HEMATOCRIT 35.7 % (36.0-47.0); HEMOGLOBIN 12.3 g/dL (12.0-15.5); LYMPHOCYTES % (AUTO) 26.5 % (13-45); MEAN CORPUSCULAR HGB CONC 34.6 g/dL (32.0-36.0); MEAN CORPUSCULAR VOLUME 87 fl (80-97); MONOCYTES % (AUTO) 8.3 % (3-13); PLATELET COUNT 368 10^3/uL (150-450); RED BLOOD COUNT 4.11 10^6/uL (3.72-5.28); RED CELL DISTRIBUTION WIDTH 12.8 % (11.5-14.0); SEGMENTED NEUTROPHILS % (AUTO) 64.2 % (42-78); TOTAL CELLS COUNTED % (AUTO) 100 %; WHITE BLOOD COUNT 9.3 10^3/uL (4.0-10.5)
[2020-04-30 21:58] LABS: APPEARANCE,URINE SLIGHTLY-CLOUDY; BILIRUBIN,URINE NEGATIVE (NEGATIVE); COLOR,URINE AMBER; GLUCOSE, URINE NEGATIVE (NEGATIVE); KETONES,URINE NEGATIVE (NEGATIVE); LEUKOCYTE ESTERASE,URINE TRACE (NEGATIVE); NITRITE,URINE NEGATIVE (NEGATIVE); PROTEIN,URINE 30 mg/dL (NEGATIVE); URINE SPECIFIC GRAVITY 1.027
[2020-04-30 22:13] LABS: ALBUMIN 3.8 g/dL (3.5-5.0); ALKALINE PHOSPHATASE 87 U/L (38-126); ANION GAP 6 (5-19); ASPARTATE AMINO TRANSFERASE 22 U/L (14-36); BILIRUBIN,DIRECT 0.1 mg/dL (0.0-0.4); BILIRUBIN,TOTAL 0.3 mg/dL (0.2-1.3); BLOOD UREA NITROGEN 7 mg/dL (7-20); CALCIUM 9.3 mg/dL (8.4-10.2); CARBON DIOXIDE 26 mmol/L (22-30); CHLORIDE 103 mmol/L (98-107); GLUCOSE 97 mg/dL (75-110); POTASSIUM 4.2 mmol/L (3.6-5.0); TOTAL PROTEIN 7.3 g/dL (6.3-8.2)
--- NOTE | 2020-04-30 22:49 | RADIOLOGY REPORT (SQ) ---
EXAM DESCRIPTION: U/S ABDOMEN LIMITED W/O DOP RadLex: US ABDOMEN LIMITED CLINICAL HISTORY: 29 years Female; RUQ/epigastric pain/eval GB; TECHNIQUE: Right upper quadrant ultrasound was performed. COMPARISON: None. FINDINGS: Pancreas: Visualized portions are unremarkable. Liver: 14 cm long Portal venous flow is hepatopedal, normal. Gallbladder: Echogenic sludge. No large stone. Cannot exclude punctate gallstones. No wall thickening or pericholecystic edema. Positive Watson sign. Common bile duct: 2 mm. Right kidney: 11.6 cm long. No hydronephrosis. IMPRESSION: 1. Large amount of gallbladder sludge. No definite calculi, although there is a positive Watson's sign, suggesting acute cholecystitis. 2. No biliary ductal distention.
[2020-05-01] MEDS ORDERED: NORMAL SALINE 1000 ML 1,000 ML IV ONE (01:46)
--- NOTE | 2020-05-01 02:01 | ER Document Report ---
ED GI/ - General Chief Complaint: Near Syncope Stated Complaint: STOMACH PAIN,VOMITING,FAINTY Time Seen by Provider: 04/30/20 20:53 Primary Care Provider: [facility] [Provider Group] - Follow up as needed JEAN CLAUDE IRWIN MD [CONVERSION] - Follow up as needed Mode of Arrival: Wheelchair Information source: Patient Notes: 29-year-old female presented to ED for complaint of epigastric pain with nausea and vomiting for the last 5 days. She states it was worse over the last 24 hours. She states she has not eaten anything today so the pain is not very bad at this time and she has not had any vomiting today. She states she went to the health department this morning and they told her she needed to come to the emergency room and be evaluated for cholecystitis. She denies any fevers or chills. She states she is currently taking Macrobid for a UTI. She states she had her first dose in the morning. She states she supposed to start 1 to DIRECT MARKETING COORDINATOR on the of this month. She was seen in triage before I examined her. Blood work and ultrasound were completed. WBCs was 9.3 lymphs 26.5 with segs 64.2 hemoglobin 12.3 with hematocrit 35.7. AST was 22 ALT was 19 alkaline phos was 87 and lipase was 141.2. Abdominal ultrasound showed large amount of gallbladder sludge no definite calculi positive Watson sign. There was no red- cholecystic edema or wall thickening. Patient is 22 weeks with her fourth child. Patient states her pain level is a 3/5 at this time. She states the pain was much less until she had the ultrasound where they were pushing on her abdomen and that I examined her. She states she is not having any nausea at this time. Constitutional: Negative for fever. HENT: Negative for sore throat. Eyes: Negative for visual changes. Cardiovascular: Negative for chest pain. Respiratory: Negative for shortness of breath. Gastrointestinal: Epigastric pain nausea. She is 22 weeks Genitourinary: Denies any urinary symptoms Musculoskeletal: Negative for back pain. Skin: Negative for rash. Neurological: Negative for headaches, weakness or numbness. 10 point ROS negative except as marked above and in HPI. VITAL SIGNS: Within normal limits. GENERAL: No acute distress, non-toxic appearance. HEAD: Normal with no signs of head trauma. EYES: PERRLA, EOMI, conjunctiva normal, no discharge. EARS: Hearing grossly intact. NOSE: Normal. THROAT: Oropharynx is normal. NECK: Normal range of motion, no tenderness, supple, no lymphadenopathy, No adenopathy, no JVD. CHEST: Clear breath sounds bilaterally. No wheezes, rales, or rhonchi. CARDIAC: Regular rate and rhythm. S1 and S2, without murmurs, gallops, or rubs. VASCULAR: No Edema. Peripheral pulses normal and equal in all extremities. ABDOMEN: 22-week abdomen with epigastric pain that radiates to her shoulder blades GASTROINTESTINAL: Bowel sounds normal GENITOURINARY: Gravid abdomen LYMPATHTIC: No lymphadenopathy noted. MUSCULOSKELETAL: Good range of motion of all major joints. Extremities without clubbing, cyanosis or edema. NEUROLOGICAL: Alert and oriented x 3. No focal sensory or strength deficits. Speech normal. Follows commands appropriately. PSYCHIATRIC: Normal Affect, judgement and mood. SKIN: Normal appearance with no rashes or lesions. TRAVEL OUTSIDE OF THE [place] IN LAST 30 DAYS: No - HPI Patient complains to provider of: Abdominal pain - Epigastric, , Other - Nausea Onset: Other - 5 days worse today Timing/Duration: Worse Quality of pain: Sharp Severity at maximum: Severe Severity in ED: Moderate Pain Level: 3 Location: Epigastric Menstrual period history: : 4 Para: 3 Associated symptoms: Loss of appetite, Nausea, Vomiting, Other - Epigastric abdominal pain Exacerbated by: Food Relieved by: Denies Similar symptoms previously: Yes Recently seen / treated by doctor: Yes - Related Data Allergies/Adverse Reactions: No Known Allergies Allergy (Verified 03/22/20 20:02) Home Medications: prenatals Past Medical History - General Information source: Patient - Social History Smoking Status: Never Smoker Chew tobacco use (# tins/day): No Frequency of alcohol use: None Drug Abuse: None Lives with: Family Family History: Reviewed & Not Pertinent Patient has suicidal ideation: No Patient has homicidal ideation: No - Past Medical History Cardiac Medical History: Reports: None Pulmonary Medical History: Reports: None EENT Medical History: Reports: None Endocrine Medical History: Reports: None Renal/ Medical History: Reports: None Malignancy Medical History: Reports: None GI Medical History: Reports: None Musculoskeletal Medical History: Reports None Skin Medical History: Reports None Psychiatric Medical History: Reports: None Traumatic Medical History: Reports: None Infectious Medical History: Reports: None Surgical Hx: Negative Past Surgical History: Reports: None - Immunizations Immunizations up to date: Yes Hx Diphtheria, Pertussis, Tetanus Vaccination: Yes Physical Exam - Vital signs Vitals: Temp Pulse BP Pulse Ox 98.1 F 64 133/78 H 100 04/30/20 23:37 04/30/20 23:37 04/30/20 23:37 04/30/20 23:37 Course - Re-evaluation Re-evalutation: 05/01/20 02:12 Discussed labs and ultrasound with Dr. Clements who stated patient could be discharged home with diet control for the pain patient is 22 weeks and they will try not to do any kind of surgery until she is delivered. She will need a follow-up consult with surgery and DIRECT MARKETING COORDINATOR. I have discussed diet with patient to stay away from that spicy foods and tomato that can cause her increased pain. She will need to increase her fluid intake and notify DIRECT MARKETING COORDINATOR on Sunday of her findings. 05/01/20 02:30 Ultrasound was used to demonstrate heartbeat and movement. - Vital Signs Vital signs: Temp Pulse Resp BP Pulse Ox 98.0 F 85 18 112/73 100 05/01/20 02:38 05/01/20 02:38 05/01/20 02:38 05/01/20 02:38 05/01/20 02:38 - Laboratory Results Result Diagrams: 04/30/20 21:30 04/30/20 21:30 Laboratory Results Interpreted: 04/30/20 04/30/20 04/30/20 21:30 21:30 21:30 Hct 35.7 L Sodium 135.1 L Creatinine 0.51 L Urine Protein 30 H Urine Urobilinogen 2.0 H Ur Leukocyte Esterase TRACE H Urine Ascorbic Acid 40 H Critical Laboratory Results Reviewed: No Critical Results - Radiology Results Critical Radiology Results Reviewed: No Critical Results Discharge - Discharge Clinical Impression: Gallbladder disease affecting in second trimester Qualifiers: Weeks of gestation: 22 weeks Qualified Code(s): Z3A.22 - 22 weeks gestation of Condition: Stable Disposition: HOME, SELF-CARE Additional Instructions: Gallbladder Disease Your evaluation shows evidence of gallbladder disease. The gallbladder is a pouch under the liver which stores bile. Stones, infection, or irritation of the gallbladder cause attacks of pain. Certain foods -- fats in particular -- may provoke attacks. The usual treatment for gallbladder disease is surgical removal of the gallbladder -- called a cholecystectomy. You will be referred to a physician qualified to advise you on the best treatment for your problem. Hospitalization is not necessary. Take clear liquids only until you are painfree. After that, you should stay on a low-fat diet, with frequent SMALL meals. Call the doctor or return at once if you develop severe pain, repeated vomiting, fever, or jaundice (a yellow color in the skin and whites of the eyes). Acetaminophen Acetaminophen may be taken for pain relief or fever control. It's much safer than aspirin, offering a wider range of "safe" dosages. It is safe during . Some brand names are Tylenol, Panadol, Datril, Anacin 3, Tempra, and Liquiprin. Acetaminophen can be repeated every four hours. The following are maximum recommended dosages: WEIGHT Dose Drops Elixir Chewable(80mg) (LBS.) drprs=droppers tsp=teaspoon 6 40 mg .4 ml (1/2) 6-11 80 mg .8 ml (full) 1/2 tsp 1 tab 12-16 120 mg 1 1/2 drprs 3/4 tsp 1 1/2 tabs 17-23 160 mg 2 drprs 1 tsp 2 tabs 24-30 240 mg 3 drprs 1 1/2 tsp 3 tabs 30-35 320 mg 2 tsp 4 tabs 36-41 360 mg 2 1/4 tsp 4 1/2 tabs 42-47 400 mg 2 1/2 tsp 5 tabs 48-53 480 mg 3 tsp 6 tabs 54-59 520 mg 3 1/4 tsp 6 1/2 tabs 60-64 560 mg 3 1/2 tsp 7 tabs 65-70 600 mg 3 3/4 tsp 7 1/2 tabs 71-76 640 mg 4 tsp 8 tabs 77-82 720 mg 4 1/2 tsp 9 tabs 83-88 800 mg 5 tsp 10 tabs >89 pounds or adults 650 mg to 900 mg Acetaminophen can be repeated every four hours. Maximum daily dose not to exceed 4000 mg. These maximum recommended dosages are slightly higher than the dosages written on the product container, but these dosages are very safe and well below the toxic dosage for acetaminophen. FOLLOW-UP CARE: If you have been referred to a physician for follow-up care, call the physicians office for an appointment as you were instructed or within the next two days. If you experience worsening or a significant change in your symptoms, notify the physician immediately or return to the Emergency Department at any time for re-evaluation. Forms: Elevated Blood Pressure Referrals: JEAN CLAUDE IRWIN MD [CONVERSION] - Follow up as needed [facility] [Provider Group] - Follow up as needed
[2020-05-01 02:40] VITALS: BP 112/73
== END 2020-05-01 02:40 | disposition home or self-care (01) ==
LOC: ER 20:22
DX: O99.612 Diseases of the digestive system complicating pregnancy, second trimester (principal); K82.8 Other specified diseases of gallbladder; O23.42 Unspecified infection of urinary tract in pregnancy, second trimester; O21.2 Late vomiting of pregnancy; O26.892 Other specified pregnancy related conditions, second trimester; R10.13 Epigastric pain; R63.0 Anorexia; Z79.899 Other long term (current) drug therapy; Z3A.22 22 weeks gestation of pregnancy
CPT/HCPCS: 36415; 76705; 80053; 81001; 83690; 85025; 99284

== ENCOUNTER 2020-05-14 04:53 | Outpatient (CLI) | payer MEDICAID ==
[2020-05-14 05:22] LABS: APPEARANCE,URINE CLOUDY; BILIRUBIN,URINE NEGATIVE (NEGATIVE); GLUCOSE, URINE NEGATIVE (NEGATIVE); KETONES,URINE TRACE mg/dL (NEGATIVE); LEUKOCYTE ESTERASE,URINE TRACE (NEGATIVE); NITRITE,URINE NEGATIVE (NEGATIVE); PROTEIN,URINE 100 mg/dL (NEGATIVE); URINE SPECIFIC GRAVITY 1.023
[2020-05-14 05:28] LABS: COLOR,URINE DARK YELLOW
[2020-05-14 05:34] LABS: URINE AMPHETAMINES SCREEN NEGATIVE; URINE BARBITURATES SCREEN NEGATIVE; URINE BENZODIAZEPINES SCREEN NEGATIVE; URINE COCAINE SCREEN NEGATIVE; URINE MARIJUANA (THC) SCREEN NEGATIVE; URINE METHADONE SCREEN NEGATIVE; URINE PHENCYCLIDINE SCREEN NEGATIVE
== END 2020-05-14 05:38 | disposition home or self-care (01) ==
LOC: LC 04:53
PROVIDERS: ATTEND Obstetrics & Gynecology Gynecology
DX: O36.8120 Decreased fetal movements, second trimester, not applicable or unspecified (principal); O21.2 Late vomiting of pregnancy; Z3A.24 24 weeks gestation of pregnancy
CPT/HCPCS: 80307; 81001

== ENCOUNTER 2020-05-14 05:42 | Emergency (ER) | payer MEDICAID ==
[2020-05-14] MEDS ORDERED: NORMAL SALINE 1000 ML 1,000 ML IV ONE (06:21)
--- NOTE | 2020-05-14 06:23 | ER Document Report ---
ED Medical Screen (RME) - General Chief Complaint: Abdominal Pain Stated Complaint: POSSIBLE GALLBLADDER ATTACK Time Seen by Provider: 05/14/20 06:20 Primary Care Provider: KALEB ALEMAN MD [Primary Care Provider] - Follow up as needed Mode of Arrival: Wheelchair Information source: Patient Notes: 29-year-old female presented to ED for right upper quadrant abdominal pain. She states she is nausea and vomiting vomiting bile and blood. She is 25 weeks . She states she was seen 2 weeks ago and was diagnosed with sludge in her gallbladder. She states she is getting much sicker and cannot keep any food or fluid down. I have ordered blood urine and ultrasound. She is on her way to ultrasound right now. I have greeted and performed a rapid initial assessment of this patient. A comprehensive ED assessment and evaluation of the patient, analysis of test results and completion of medical decision making process will be conducted by an additional ED providers. TRAVEL OUTSIDE OF THE [place] IN LAST 30 DAYS: No - Related Data Allergies/Adverse Reactions: No Known Allergies Allergy (Verified 05/14/20 05:04) Past Medical History Renal/ Medical History: Denies: Hx Peritoneal Dialysis - Immunizations Immunizations up to date: Yes Hx Diphtheria, Pertussis, Tetanus Vaccination: Yes Physical Exam - Vital signs Vitals: Temp Pulse BP Pulse Ox 97.7 F 78 118/79 100 05/14/20 05:49 05/14/20 05:49 05/14/20 05:49 05/14/20 05:49 Course - Vital Signs Vital signs: Temp Pulse Resp BP Pulse Ox 97.7 F 78 118/79 100 05/14/20 05:49 05/14/20 05:49 05/14/20 05:49 05/14/20 05:49 Doctor's Discharge - Discharge Referrals: KALEB ALEMAN MD [Primary Care Provider] - Follow up as needed
--- NOTE | 2020-05-14 07:44 | RADIOLOGY REPORT (SQ) ---
EXAM: Ultrasound abdomen limited CLINICAL DATA: 29 years Female Right upper quadrant abdominal pain TECHNICAL DATA: Limited sonographic imaging of the right upper quadrant was performed on 05/14/2020 at 6:37 AM. Comparison: 04/30/2020. FINDINGS: The liver is normal in size and configuration. The liver demonstrates normal echogenicity. No focal hepatic abnormalities are identified. Doppler imaging reveals patency of the portal vein and normal hepatopedal flow. The gallbladder is well distended. There is non-shadowing echogenic debris layering in the dependent portion of the gallbladder lumen likely due to sludge. The gallbladder wall measures approximately 2 mm in diameter. There is no evidence of pericholecystic fluid. No sonographic Watson sign was detected by the technologist. The common bile duct measures 2 mm in diameter. There is no evidence of biliary ductal dilatation. The right kidney is normal in size, shape and echogenicity without hydronephrosis or definite nephrolithiasis. The right kidney measures 9.6 cm in length.. There is no evidence of free fluid in the abdomen. The visualized portions of the pancreas are unremarkable. The tail is partially obscured by bowel gas. The aorta is grossly unremarkable. IMPRESSION: 1. Gallbladder sludge without evidence of biliary ductal dilatation, gallbladder wall thickening or pericholecystic fluid. 2. Otherwise, unremarkable right upper quadrant ultrasound.
[2020-05-14 08:12] LABS: ABSOLUTE LYMPHOCYTES (AUTO) 1.8 10^3/uL (0.5-4.7); ABSOLUTE MONOCYTES (AUTO) 0.9 10^3/uL (0.1-1.4); ABSOLUTE NEUT (AUTO) 10.5 10^3/uL (1.7-8.2); BASOPHILS % (AUTO) 0.2 % (0-2); EOSINOPHILS % (AUTO) 0.1 % (0-6); HEMATOCRIT 34.7 % (36.0-47.0); HEMOGLOBIN 12.1 g/dL (12.0-15.5); LYMPHOCYTES % (AUTO) 13.8 % (13-45); MEAN CORPUSCULAR HGB CONC 34.8 g/dL (32.0-36.0); MEAN CORPUSCULAR VOLUME 86 fl (80-97); MONOCYTES % (AUTO) 6.7 % (3-13); PLATELET COUNT 384 10^3/uL (150-450); RED BLOOD COUNT 4.02 10^6/uL (3.72-5.28); RED CELL DISTRIBUTION WIDTH 12.9 % (11.5-14.0); SEGMENTED NEUTROPHILS % (AUTO) 79.2 % (42-78); TOTAL CELLS COUNTED % (AUTO) 100 %; WHITE BLOOD COUNT 13.3 10^3/uL (4.0-10.5)
[2020-05-14 08:39] LABS: ALBUMIN 3.9 g/dL (3.5-5.0); ALKALINE PHOSPHATASE 103 U/L (38-126); ANION GAP 8 (5-19); ASPARTATE AMINO TRANSFERASE 49 U/L (14-36); BILIRUBIN,DIRECT 0.5 mg/dL (0.0-0.4); BILIRUBIN,TOTAL 0.9 mg/dL (0.2-1.3); BLOOD UREA NITROGEN 7 mg/dL (7-20); CALCIUM 9.5 mg/dL (8.4-10.2); CARBON DIOXIDE 25 mmol/L (22-30); CHLORIDE 103 mmol/L (98-107); GLUCOSE 100 mg/dL (75-110); POTASSIUM 3.9 mmol/L (3.6-5.0); TOTAL PROTEIN 7.4 g/dL (6.3-8.2)
[2020-05-14 09:11] LABS: APPEARANCE,URINE SLIGHTLY-CLOUDY; BILIRUBIN,URINE NEGATIVE (NEGATIVE); COLOR,URINE AMBER; GLUCOSE, URINE NEGATIVE (NEGATIVE); KETONES,URINE NEGATIVE (NEGATIVE); LEUKOCYTE ESTERASE,URINE NEGATIVE (NEGATIVE); NITRITE,URINE NEGATIVE (NEGATIVE); PROTEIN,URINE 100 mg/dL (NEGATIVE); URINE SPECIFIC GRAVITY 1.021
--- NOTE | 2020-05-14 10:05 | ER Document Report ---
Entered by KVNG DERAS SCRIBE 05/14/20 0748 Acting as scribe for:BRANT SPRINGER MD ED GI/ - General Chief Complaint: Abdominal Pain Stated Complaint: POSSIBLE GALLBLADDER ATTACK Time Seen by Provider: 05/14/20 06:20 Primary Care Provider: KALEB ALEMAN MD [Primary Care Provider] - Follow up as needed Mode of Arrival: Wheelchair Information source: Patient Notes: This 29 year old female patient, , currently x25 weeks with known gallbladder disease presents to the ED today with complaints of RUQ abdominal pain with associated nausea and vomiting that started around 0300 this morning. Patient states that she was seen here x3 weeks ago with the same complaint and was diagnosed with "sludge in my gallbladder." She states that she thinks she is having "another attack" and that the pain is "x10 times worse." Denies fever, chills, or vaginal bleeding. She notes taking Tylenol prior to arrival and states that she "feels better" at this time with the IV fluids. She is followed by [facility] for OB care. TRAVEL OUTSIDE OF THE [place] IN LAST 30 DAYS: No - Related Data Allergies/Adverse Reactions: No Known Allergies Allergy (Verified 05/14/20 08:11) Past Medical History - General Information source: Patient - Social History Smoking Status: Unknown if Ever Smoked Smoking Education Provided: No Family History: Reviewed & Not Pertinent - Immunizations Immunizations up to date: Yes Hx Diphtheria, Pertussis, Tetanus Vaccination: Yes Review of Systems - Review of Systems Constitutional: See HPI. denies: Chills, Fever EENT: No symptoms reported Cardiovascular: No symptoms reported Respiratory: No symptoms reported Gastrointestinal: See HPI, Abdominal pain, Nausea, Vomiting Genitourinary: No symptoms reported Female Genitourinary: See HPI, . denies: Vaginal bleeding Musculoskeletal: No symptoms reported Skin: No symptoms reported Hematologic/Lymphatic: No symptoms reported Neurological/Psychological: No symptoms reported -: Yes All other systems reviewed and negative Physical Exam - Vital signs Vitals: Temp Pulse BP Pulse Ox 97.7 F 78 118/79 100 05/14/20 05:49 05/14/20 05:49 05/14/20 05:49 05/14/20 05:49 Interpretation: Normal - General General appearance: Appears well, Alert In distress: None - HEENT Head: Normocephalic, Atraumatic Eyes: Normal Extraocular movements intact: Yes Pupils: PERRL Neck: Normal, Supple - Respiratory Respiratory status: No respiratory distress Chest status: Nontender Breath sounds: Normal Chest palpation: Normal - Cardiovascular Rhythm: Regular Heart sounds: Normal auscultation Murmur: No - Abdominal Inspection: Gravid female Bowel sounds: Normal Tenderness: Nontender, Other - Abdomen soft Organomegaly: No organomegaly - Back Back: Normal, Nontender - Extremities General upper extremity: Normal inspection General lower extremity: Normal inspection. No: Edema - Neurological Neuro grossly intact: Yes Cognition: Normal Orientation: AAOx4 Cindy Coma Scale Eye Opening: Spontaneous [place] Coma Scale Verbal: Oriented [place] Coma Scale Motor: Obeys Commands Cindy Coma Scale Total: 15 Speech: Normal Motor strength normal: LUE, RUE, LLE, RLE Sensory: Normal - Psychological Associated symptoms: Normal affect, Normal mood - Skin Skin Temperature: Warm Skin Moisture: Dry Skin Color: Normal Course - Re-evaluation Re-evalutation: 05/14/20 10:02 Patient resting comfortably at this time not showing any signs of distress has been no return of any cramping abdominal pain. There has been no vaginal d ischarge or bleed. - Vital Signs Vital signs: Temp Pulse Resp BP Pulse Ox 97.7 F 78 118/79 100 05/14/20 05:49 05/14/20 05:49 05/14/20 05:49 05/14/20 05:49 - Laboratory Results Result Diagrams: 05/14/20 07:40 05/14/20 07:40 Laboratory Results Interpreted: 05/14/20 05/14/20 05/14/20 07:40 07:40 08:37 WBC 13.3 H Hct 34.7 L Absolute Neuts (auto) 10.5 H Seg Neutrophils % 79.2 H Sodium 136.0 L Direct Bilirubin 0.5 H AST 49 H Beta HCG, Quant 97085.00 H Urine Protein 100 H Urine Urobilinogen 4.0 H Laboratories show no critical labs patient is 25 weeks . Critical Laboratory Results Reviewed: No Critical Results - Radiology Results Radiology Results Interpreted: 05/14/20 10:03 Abdomen Ultrasound 05/14/20 06:31 IMPRESSION: 1. Gallbladder sludge without evidence of biliary ductal dilatation, gallbladder wall thickening or pericholecystic fluid. 2. Otherwise, unremarkable right upper quadrant ultrasound. Abdominal ultrasound shows gallbladder sludge without evidence of any dilatation wall thickening fluid pericholecystic not found. Otherwise unremarkable ultrasound of right upper quadrant. Critical Radiology Results Reviewed: No Critical Results Discharge - Discharge Clinical Impression: Third trimester , Abdominal pain, Sludge in gallbladder Condition: Stable Disposition: HOME, SELF-CARE Instructions: Abdominal Pain ([facility]) Additional Instructions: You are . care is best started as early in as possible. If you're unsure about continuing this , you should discuss this with your physician or with cost engineer at [facility]. You should take only medications approved by your physician. Acetaminophen can safely be taken for minor pains. As a rule, medication for chronic conditions such as asthma or seizures can safely be continued. You should discuss with the physician every medicine you take. Any regular exercise program can be continued. Talk to your physician, however, before engaging in competitive or demanding sports. Alcohol, smoking, and "street drugs" are dangerous to your baby. Cocaine is especially dangerous. Don't use any illicit drugs! Referrals: KALEB ALEMAN MD [Primary Care Provider] - Follow up as needed I personally performed the services described in the documentation, reviewed and edited the documentation which was dictated to the scribe in my presence, and it accurately records my words and actions.
[2020-05-14 10:39] VITALS: BP 129/68
== END 2020-05-14 10:12 | disposition home or self-care (01) ==
LOC: ER 05:42
DX: O99.612 Diseases of the digestive system complicating pregnancy, second trimester (principal); K82.8 Other specified diseases of gallbladder; R10.11 Right upper quadrant pain; O26.892 Other specified pregnancy related conditions, second trimester; O21.9 Vomiting of pregnancy, unspecified; Z3A.25 25 weeks gestation of pregnancy
CPT/HCPCS: 99285; 96360; 36415; 84702; 83690; 85025; 80053; 81001; 76705; J7030